=== PATIENT | female | born 1995 | race Caucasian/White ===

== ENCOUNTER 2024-06-01 01:33 | Emergency (ER) | payer MEDICAID ==
[~2024-06-01] VITALS: Ht 165.1 cm; Wt 86.0 kg
[2024-06-01 01:36] VITALS: O2SAT 99
[2024-06-01] MEDS ORDERED: ONDANSETRON HCL 4MG TABLET PO ONE (03:00)
[2024-06-01] MEDS ORDERED: MECLIZINE 25MG TABLET PO ONE (03:00)
[2024-06-01] MEDS: ONDANSETRON HCL 4MG TABLET PO NR (04:33)
[2024-06-01] MEDS: MECLIZINE 12.5MG TABLET PO NR (04:33)
[2024-06-01] MEDS ORDERED: ONDA4TAB11 PO (05:01)
[2024-06-01] MEDS ORDERED: MECL-299 MT (05:01)
[2024-06-01 06:05] VITALS: BP 93/42; PULSE 72; RESP 18; TEMP 97.8
== END 2024-06-01 06:05 | disposition home or self-care (01) ==
LOC: ER 01:33
DX: R42 Dizziness and giddiness (principal); R11.2 Nausea with vomiting, unspecified
CPT/HCPCS: 99283; J8597; Q0162